=== PATIENT | female | born 1965 | race Caucasian/White ===

== ENCOUNTER 2018-11-27 06:38 | Day surgery (SDC) | payer OTHER ==
[~2018-11-27] VITALS: Ht 167.6 cm; Wt 90.9 kg
[~2018-11-27 06:38] MED LIST: IBUP-1542 PO; LORA-408 PO; SERT100T PO; SERT50TA PO; VENL150C PO
[2018-11-27 07:26] VITALS: Ht 167.6 cm; Wt 90.9 kg
[2018-11-27] MEDS ORDERED: HYDROXINE (07:36)
[2018-11-27] MEDS ORDERED: [UNRECOGNIZED DRUG - OTHER] (07:36)
[2018-11-27] MEDS ORDERED: PANTOPRAZOLE (07:36)
[2018-11-27] MEDS ORDERED: EFFEXOR (07:36)
--- NOTE | 2018-11-27 07:36 | PREAC ---
Date/Time of Note Date/Time of Note DATE: 11/27/18 TIME: 07:34 Anesthesia Eval and Record Evaluation Time Pre-Procedure Interview DATE: 11/27/18 TIME: 07:34 Age 53 Sex female NPO: 8 hrs Preoperative diagnosis Changes of Bowel Habit, Abd pain Planned procedure EGD & Colonoscopy Past Medical History Past Medical History: Includes Pulm: Smoking Hx Psych: Depression Surgery & Anesthesia Issues No known issue Meds Anticoagulation: No Beta Dangelo within 24 hr: No Reason Beta Dangelo not given: Pt. not on B-Dangelo Reported Medications Venlafaxine Hcl* (Effexor XR*) 150 Mg Cap.sr.24h, 150 MG PO DAILY, CAP 05/29/14 Ibuprofen* (Ibuprofen*) 600 Mg Tablet, 600 MG PO Q6H PRN for PAIN, TAB 05/29/14 Sertraline Hcl* (Zoloft*) 100 Mg Tablet, 100 MG PO DAILY, TAB 05/29/14 Sertraline Hcl* (Zoloft*) 50 Mg Tablet, 50 MG PO DAILY, TAB 05/29/14 Lorazepam (Ativan) 1 Mg Tablet, 1 MG PO HS 12/21/11 Meds reviewed: Yes Allergies Coded Allergies: Penicillins (Verified Allergy, Unknown, 05/29/14) Allergies Reviewed: Yes Labs/Studies Labs Reviewed: Reviewed by anesthesiologist test: N/A Studies: ECG (n/a), CXR (n/a) Pre-procedure Exam Airway: Adequate mouth opening, Adequate thyromental dist Mallampati: Mallampati II Teeth: Normal Lung: Normal Heart: Normal ASA Physical Status ASA physical status: 2 Emergency: None Planned Anesthetic General/MAC: MAC Planned Pain Management Parenteral pain med Pre-operative Attestations Prior to commencing anesthesia and surgery, the patient was re-evaluated, there was verification of: *The patient's identity *The results of appropriate recent lab work and preoperative vital signs *The above evaluation not changing prior to induction *Anesthetic plan, risk benefits, alternative and complications discussed with patient/family; questions answered; patient/family understands, accepts and wishes to proceed. ASUNCION BAIRES MD Nov 27, 2018 07:36
[2018-11-27 07:56] VITALS: BP 119/75; PULSE 72; RESP 18
[2018-11-27] MEDS ORDERED: PROPOFOL 40 ML ONE (08:38)
[2018-11-27 09:15] VITALS: BP 141/97; PULSE 64; RESP 17
--- NOTE | 2018-11-27 09:18 | PAC ---
Date/Time of Note Date/Time of Note DATE: 11/27/18 TIME: 09:17 Post-Anesthesia Notes Post-Anesthesia Note Last documented vital signs Vital Signs Date Temp Pulse Resp B/P (MAP) Pulse Ox O2 O2 Flow FiO2 Time Delivery Rate 11/27/18 98.0 72 18 119/75 97 Room Air 09:16 (90) Activity: WNL Respiratory function: WNL Cardiovascular function: WNL Mental status: Baseline Pain reasonably controlled: Yes Hydration appropriate: Yes Nausea/Vomiting absent: Yes ASUNCION BAIRES MD Nov 27, 2018 09:18
[2018-11-27] MEDS ORDERED: PROPOFOL 20 ML ONE (09:24)
[2018-11-27 09:30] VITALS: BP 110/75; PULSE 64; RESP 16
== END 2018-11-27 10:19 | disposition home or self-care (01) ==
LOC: GIL 06:38
PROVIDERS: ATTEND Internal Medicine Gastroenterology
DX: R19.4 Change in bowel habit (principal); D12.5 Benign neoplasm of sigmoid colon; D12.8 Benign neoplasm of rectum; K21.9 Gastro-esophageal reflux disease without esophagitis; K29.60 Other gastritis without bleeding; K64.8 Other hemorrhoids
CPT/HCPCS: 43239; 45380; 45385; 88305; 88312; Z7610

== ENCOUNTER 2019-01-23 06:21 | Day surgery (SDC) | payer OTHER ==
[~2019-01-23] VITALS: Ht 167.6 cm; Wt 89.5 kg
[2019-01-23] VITALS (7 sets, daily range): BP systolic 121–135; BP diastolic 70–91; PULSE 56–80; RESP 13–37; Ht 167.6 cm; Wt 89.5 kg
[~2019-01-23 06:21] MED LIST changes: +EFFEXOR; +HYDROXINE; -IBUP-1542 PO; -LORA-408 PO; +PANTOPRAZOLE; -SERT100T PO; -SERT50TA PO; -VENL150C PO; +[UNRECOGNIZED DRUG - OTHER]
[2019-01-23] MEDS ORDERED: PROPOFOL 200 MG INJ ONE (07:00)
[2019-01-23] MEDS ORDERED: LACTATED RINGER'S 1,000 ML IV SCH (07:00)
[2019-01-23] MEDS ORDERED: SEVOFLURANE 15 MIN ONE (07:00)
[2019-01-23] MEDS ORDERED: CLINDAMYCIN 900 MG/D5W (PMX) 50 ML IVPB ONE (07:00)
[2019-01-23] MEDS ORDERED: RANI300T PO (07:41)
[2019-01-23] MEDS ORDERED: HYDR-843 PO (07:41)
[2019-01-23] MEDS ORDERED: GABA-526 PO (07:41)
[2019-01-23] MEDS ORDERED: PANT40TA3 PO (07:42)
--- NOTE | 2019-01-23 07:44 | HPN ---
Date/Time of Note Date/Time of Note DATE: 01/23/19 TIME: 07:44 Interval H&P Admission Note Pt. seen H&P reviewed: No system changes ESTEFANY MAGAÑA Jan 23, 2019 07:44
--- NOTE | 2019-01-23 08:33 | PREAC ---
Date/Time of Note Date/Time of Note DATE: 01/23/19 TIME: 08:30 Anesthesia Eval and Record Evaluation Time Pre-Procedure Interview DATE: 01/23/19 TIME: 08:30 Age 53 Sex female NPO: 8 hrs Preoperative diagnosis left wrist pain Planned procedure left wrist arthroscopy, debridement of triangular fibrocartilage, small finger trigger release, ulnar nerve decompression Past Medical History Past Medical History: Includes Pulm: Asthma GI: Obesity Surgery & Anesthesia Issues No known issue Meds Anticoagulation: No Beta Dangelo within 24 hr: No Reason Beta Dangelo not given: Pt. not on B-Dangelo Reported Medications Pantoprazole* (Protonix*) 40 Mg Tablet.dr, 40 MG PO DAILY, TAB 01/23/19 Ranitidine Hcl* (Ranitidine Hcl*) 300 Mg Tablet, 300 MG PO HS, #30 TAB 01/23/19 Gabapentin* (Gabapentin*) 600 Mg Tablet, 600 MG PO BID, #60 TAB 01/23/19 Hydroxyzine Hcl* (Hydroxyzine Hcl*) 25 Mg Tablet, 25 MG PO TID PRN for ITCHING, #30 TAB 01/23/19 Discontinued Reported Medications [Albueterol ] No Conflict Check 11/27/18 [Hydroxine] No Conflict Check 11/27/18 [Effexor] No Conflict Check 11/27/18 [Pantoprazole] No Conflict Check 11/27/18 Current Medications Lactated Ringer's 1,000 ml @ 20 mls/hr Q24H IV Last administered on 01/23/19at 07:23; Admin Dose 20 MLS/HR; Start 01/23/19 at 07:00 Meds reviewed: Yes Allergies Coded Allergies: cortisone (Verified Allergy, Severe, HIVES, 01/23/19) Penicillins (Verified Allergy, Unknown, 01/23/19) Allergies Reviewed: Yes Labs/Studies Labs Reviewed: Reviewed by anesthesiologist test: Negative Pre-procedure Exam Last vitals Vital Signs Date Temp Pulse Resp B/P (MAP) Pulse Ox O2 O2 Flow FiO2 Time Delivery Rate 01/23/19 97.5 77 16 135/91 97 Room Air 07:30 (106) Airway: Adequate mouth opening, Adequate thyromental dist Mallampati: Mallampati II Teeth: Normal Lung: Normal Heart: Normal ASA Physical Status ASA physical status: 2 Emergency: None Planned Anesthetic General/MAC: LMA Planned Pain Management Parenteral pain med Pre-operative Attestations Prior to commencing anesthesia and surgery, the patient was re-evaluated, there was verification of: *The patient's identity *The results of appropriate recent lab work and preoperative vital signs *The above evaluation not changing prior to induction *Anesthetic plan, risk benefits, alternative and complications discussed with patient/family; questions answered; patient/family understands, accepts and wishes to proceed. JP MEYERS Jan 23, 2019 08:33
[2019-01-23] MEDS ORDERED: BUPIVACAINE 0.5% (SDV) 30 ML INJ ONE (08:35)
[2019-01-23] MEDS ORDERED: BACITRACIN/POLYMYXIN 28.35 GM OINT TOP ONE (08:35)
[2019-01-23] MEDS ORDERED: LIDOCAINE 2% (SDV) 5 ML INJ ONE (09:00)
[2019-01-23] MEDS ORDERED: ROCURONIUM 50 MG INJ ONE (09:00)
[2019-01-23] MEDS ORDERED: CEFAZOLIN 1 GM INJ ONE (09:00)
[2019-01-23] MEDS ORDERED: DEXAMETHASONE 4 MG/ML 5 ML INJ ONE (09:00)
[2019-01-23] MEDS ORDERED: PROPOFOL 40 ML ONE (09:00)
[2019-01-23] MEDS ORDERED: ONDANSETRON 4 MG INJ ONE ×2 (09:01→09:50)
[2019-01-23] MEDS ORDERED: KETOROLAC 30 MG INJ ONE (09:38)
--- NOTE | 2019-01-23 09:49 | OPPN ---
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
--- NOTE | 2019-01-23 09:59 | PAC ---
Date/Time of Note Date/Time of Note DATE: 01/23/19 TIME: 09:58 Post-Anesthesia Notes Post-Anesthesia Note Last documented vital signs Vital Signs Date Temp Pulse Resp B/P (MAP) Pulse Ox O2 O2 Flow FiO2 Time Delivery Rate 01/23/19 97.7 67 17 117/78 95 09:57 01/23/19 77 16 135/91 97 Room Air 07:30 (106) Activity: WNL Respiratory function: WNL Cardiovascular function: WNL Mental status: Baseline Pain reasonably controlled: Yes Hydration appropriate: Yes Nausea/Vomiting absent: Yes JP MEYERS Jan 23, 2019 09:59
[2019-01-23] MEDS ORDERED: hydrALAzine 20 MG INJ IV PRN (10:00)
[2019-01-23] MEDS ORDERED: OXYCODONE/ACETAMINOPHEN (5/325) TAB PO PRN ×2 (10:00)
[2019-01-23] MEDS ORDERED: KETOROLAC 30 MG INJ IV PRN (10:00)
[2019-01-23] MEDS ORDERED: EPHEDrine 25 MG/5 ML SYG IV PRN (10:00)
[2019-01-23] MEDS ORDERED: MEPERIDINE 25 MG INJ IV PRN (10:00)
[2019-01-23] MEDS ORDERED: DIPHENHYDRAMINE 50 MG INJ IV PRN (10:00)
[2019-01-23] MEDS ORDERED: FENTAnyl 50 MCG/ML VIAL IV PRN ×3 (10:00)
[2019-01-23] MEDS ORDERED: LABETALOL HCL 20MG INJ IV PRN (10:00)
[2019-01-23] MEDS ORDERED: ALBUTEROL 0.083% (NEB) 2.5 MG/3 ML AMP HHN PRN (10:00)
[2019-01-23] MEDS ORDERED: ONDANSETRON 4 MG INJ IV PRN (10:00)
[2019-01-23] MEDS ORDERED: METOCLOPRAMIDE 10 MG INJ IV PRN (10:00)
--- NOTE | 2019-01-23 12:08 | OPR ---
DATE OF OPERATION: 01/23/2019 SURGEON: Estefany Jeffries MD ANESTHESIA: General. PREOPERATIVE DIAGNOSES: 1. Left wrist synovitis and TFCC tear. 2. Left small finger trigger. 3. Left ulnar nerve compression at the elbow. POSTOPERATIVE DIAGNOSIS: Left wrist synovitis and complex tear. 1. Left small finger trigger. 2. Left ulnar nerve compression at the elbow. PROCEDURE: 1. Left wrist diagnostic arthroscopy. 2. Left wrist arthroscopic synovectomy and arthroscopic debridement of triangular fibrocartilage com plex tear. 3. Left small finger trigger finger release. 4. Left ulnar nerve decompression at the elbow. OPERATIVE FINDINGS: 1. Left wrist synovitis with partial tearing of the TFCC. 2. Stenosing tenosynovitis of the left small finger and compression of the ulnar nerve at the elbow. INDICATION FOR PROCEDURE: A 53-year-old female with longstanding left arm pain as well as numbness. She failed conservative measures, elected to proceed with surgical intervention, understanding the r isks and benefits. DESCRIPTION OF PROCEDURE: The patient was seen in the preoperative area and all further questions we re answered. Again, she gave informed consent understanding risks and benefits. She was taken to [facility] OR suite and placed in the supine position. She was placed under general anesthesia. Tourniquet p laced in left upper extremity and left upper extremity was prepped with ChloraPrep stick and draped i n usual sterile fashion. Ancef 2 grams IV was given and Esmarch bandage was used to exsanguinate the extremity and tourniquet inflated to 250 mmHg. Attention was first turned to the wrist arthroscopy and finger traps were applied to the index, middle, and ring fingers and 10 pounds of traction applie d. The III-IV portal was established and diagnostic arthroscopy was performed showing a dorsal wrist synovitis as well as partial thickness tearing of the TFCC and synovitis within the ulnar wrist. [facility] 6R portal was established and a shaver was introduced and an arthroscopic synovectomy was performed using arthroscopic shaver. The TFCC tear was debrided back to stable edges and the ulnar-sided syno vitis was also debrided and excised using arthroscopic shaver. The shaver and scope were removed fro m the wrist and portals closed with 5-0 nylon. Attention was turned to the small finger and an obliq ue incision at the A1 jono was utilized with sharp dissection carried down through skin and subcuta neous tissue. The flexor sheath was visualized and the A1 jono was incised along its midline from its most proximal to distal portion. The tendons were decompressed and a traction tenolysis was perf ormed with independent gliding of the tendons after decompression and tenolysis. The wound was copio usly irrigated. Skin closed with 4-0 nylon. Attention was turned to the elbow in a curvilinear inci arron over the medial aspect of the elbow was utilized with sharp dissection carried down through skin and subcutaneous tissue. Tenotomy scissor divided the soft tissues overlying the medial elbow and t he medial epicondyle and the cubital tunnel were visualized. The cubital tunnel was decompressed wit h a 15 blade knife and tenotomy scissors. The ulnar nerve was visualized behind the medial epicondyl e. The nerve was decompressed proximally past the intermuscular septum and was decompressed distally past the FCU fascia and the nerve was completely decompressed along its course around the elbow. Th e elbow was ranged and the nerve was stable. The wound was copiously irrigated and skin closed with 5-0 nylon. Xeroform placed over the wounds followed by sterile gauze, Webril, and a long arm splint with the elbow at 60 degrees of flexion. Tourniquet deflated after 38 minutes. The patient was awak ened from anesthesia. She was taken to the postoperative suite in stable condition, tolerated the pr ocedure well without complication. SPECIMENS: None. ESTIMATED BLOOD LOSS: 5 mL. COUNTS: Sponge, instrument, needle counts correct. TOURNIQUET TIME: 38 minutes. CONDITION ON DISCHARGE: Stable. The patient was given a nonrefillable 5 day prescription for pain medication for surgery today. Dictated By: ESTEFANY MANZANO/YANDY Conf#: [id number] DID#: [id number]
== END 2019-01-23 13:27 | disposition home or self-care (01) ==
LOC: SDS 06:21
PROVIDERS: ATTEND Orthopaedic Surgery Hand Surgery
DX: M65.832 Other synovitis and tenosynovitis, left forearm (principal); M65.352 Trigger finger, left little finger; Z88.0 Allergy status to penicillin
CPT/HCPCS: 26055; 29846; 64718; 84703; J0690; J1100; J1885; J2405; J3010; Z7512; Z7610